=== PATIENT | male | born 1945 | race Asian ===

== ENCOUNTER 2016-10-20 07:19 | Inpatient (IN) | payer MEDICAID, OTHER ==
[~2016-10-20] VITALS: Ht 162.6 cm; Wt 56.0 kg
[2016-10-20] MEDS ORDERED: SALMH IH (07:32)
[2016-10-20] MEDS ORDERED: BECL8.7A6 IH (07:32)
[2016-10-20] MEDS ORDERED: ALBU8HFA IH (07:32)
[2016-10-20] MEDS ORDERED: 0.9% SODIUM CHLORIDE 5 ML NEB SOLUTION NEB ONE (08:29)
[2016-10-20] MEDS ORDERED: ALBUTEROL SULFATE 2.5 MG/0.5 ML NEB SOLUTION NEB ONE (08:30)
[2016-10-20] MEDS ORDERED: IPRATROPIUM BROMIDE 0.5 MG/2.5 ML NEB SOLUTION NEB ONE (08:30)
[2016-10-20 08:35] LABS: EOSINOPHILS % (AUTO) 0.3 % (1.0-6.0); HEMATOCRIT 43.6 % (41-53); HEMOGLOBIN 14.4 g/dL (13.5-17.5); LYMPHOCYTES # (AUTO) 2.2 K/uL (1.0-4.8); LYMPHOCYTES % (AUTO) 18.9 % (22.0-44.0); MEAN CORPUSCULAR HEMOGLOBIN 30.7 pg (26.0-34.0); MEAN CORPUSCULAR VOLUME 93 fL (80-100); MONOCYTES # (AUTO) 1.5 K/uL (0.1-1.0); MONOCYTES % (AUTO) 12.5 % (2.0-9.0); NEUTROPHILS # (AUTO) 7.9 K/uL (1.8-7.7); NEUTROPHILS % (AUTO) 67.3 % (40.0-70.0); PLATELET COUNT (AUTO) 173 K/uL (150-450); RED BLOOD CELL COUNT(AUTO) 4.68 MIL/uL (4.50-5.90); RED CELL DISTRIBUTION WIDTH 21.7 % (11.5-14.5); WHITE BLOOD COUNT (AUTO) 11.7 K/uL (4.5-11.0)
[2016-10-20 08:46] LABS: ANION GAP 6 mmol/L (8-16); CALCIUM, TOTAL 8.4 mg/dL (8.8-10.5); CARBON DIOXIDE 30 mmol/L (22-29); CHLORIDE 103 mmol/L (98-107); CREATININE 1.17 mg/dL (0.60-1.30); GLOMERULAR FILTR. RATE CALC > 60 mL/min (>60); POTASSIUM 3.6 mmol/L (3.5-5.1); SODIUM SERUM 139 mmol/L (136-145); UREA NITROGEN, BLOOD 12 mg/dL (7-18)
[2016-10-20 08:49] LABS: INR 1.2 (0.9-1.1); PROTHROMBIN TIME 12.9 SEC (9.4-11.6)
[2016-10-20 08:54] LABS: RBC MORPHOLOGY COMMENT ABNORMAL RBC MORPH
[2016-10-20 08:59] LABS: B-TYPE NATRIURETIC PEPTIDE 37 pg/mL (0-100)
[2016-10-20 09:02] LABS: GLUCOSE, URINE (UA) NEGATIVE (NEGATIVE); KETONES,URINE NEGATIVE (NEGATIVE); LEUKOCYTE ESTERASE ,URINE SMALL (NEGATIVE); OCCULT BLOOD,URINE NEGATIVE (NEGATIVE); PROTEIN,URINE NEGATIVE (NEGATIVE)
[2016-10-20 09:04] LABS: ADD UA MICROSCOPIC YES
[2016-10-20 09:06] LABS: APPEARANCE,URINE SLIGHTLY CLOUDY (CLEAR); RBC,URINE None Seen /HPF (0-2)
[2016-10-20 09:07] LABS: RENAL EPITHELIAL CELLS,URINE Rare /LPF (None Seen)
[2016-10-20 09:11] LABS: ALANINE AMINOTRANSFERASE 77 U/L (12-78); ALBUMIN 2.3 g/dL (3.4-5.0); ASPARTATE AMINOTRANSFERASE 69 U/L (15-37); BILIRUBIN,TOTAL 8.5 mg/dL (0.1-1.0); CREATINE KINASE MB 1.1 ng/mL (0-5); CREATINE KINASE, TOTAL 102 U/L (39-308); TOTAL PROTEIN, SERUM 6.5 g/dL (6.4-8.2)
[2016-10-20 09:22] LABS: INFLUENZA TYPE B NEGATIVE FOR TYPE B (NEGATIVE)
[2016-10-20] MEDS ORDERED: AZITHROMYCIN 500 MG/NS 250 ML IV ONE (12:15)
[2016-10-20] MEDS ORDERED: CefTRIAXone 1 GM/DEXTROSE 50 ML IV ONE (12:15)
[2016-10-20] MEDS ORDERED: MethylPREDNISolone SOD SUCC 125 MG/2 ML VIAL IVP ONE (12:15)
[2016-10-20 12:45] VITALS: BP 113/67
[2016-10-20] MEDS ORDERED: INFLUENZA VIRUS VACCINE QVS 2016-17 (3YR+)/PF 60 MCG/0.5 ML SYRINGE IM ONE (13:00)
[2016-10-20] MEDS ORDERED: ACETAMINOPHEN 325 MG TABLET PO PRN (13:15)
[2016-10-20] MEDS ORDERED: *CLINICAL-LEVOFLOXACIN IVPB DOSING CLINICAL ONE ×2 (13:15)
[2016-10-20] MEDS ORDERED: ALBUTEROL SULFATE 2.5 MG/0.5 ML NEB SOLUTION NEB PRN (13:15)
[2016-10-20] MEDS ORDERED: ZOLPIDEM TARTRATE 5 MG TABLET PO PRN (13:15)
[2016-10-20] MEDS ORDERED: MAGNESIUM HYDROXIDE SUSPENSION 30 ML UDCUP PO PRN (13:15)
[2016-10-20] MEDS ORDERED: ONDANSETRON HCL 4 MG/2 ML VIAL IVP PRN (13:15)
[2016-10-20] MEDS ORDERED: BISACODYL 10 MG RECTAL RECTAL SUPPOSITORY PR PRN (13:15)
[2016-10-20] MEDS ORDERED: HYDROCODONE/ACETAMINOPHEN 5-325 MG TABLET PO PRN (13:15)
[2016-10-20] MEDS ORDERED: MORPHINE SULFATE 2 MG/ML SYRINGE IVP PRN (13:15)
[2016-10-20] MEDS ORDERED: IPRATROPIUM BROMIDE 0.5 MG/2.5 ML NEB SOLUTION NEB PRN (13:15)
[2016-10-20] MEDS ORDERED: LEVOFLOXACIN 750 MG/D5% WATER 150 ML IV SCH (14:00)
[2016-10-20] MEDS ORDERED: SODIUM CHLORIDE 0.9% 250 ML IV ONE (14:21)
[2016-10-20] MEDS: BENZONATATE 100 MG CAPSULE PO SCH ×2 (15:34→20:08)
[2016-10-20] MEDS: HEPARIN SODIUM,PORCINE 5,000 UNITS/ML VIAL SQ SCH ×2 (15:35→23:14)
[2016-10-20] MEDS ORDERED: BENZONATATE 100 MG CAPSULE PO SCH (16:00)
[2016-10-20 16:17] VITALS: BP 119/71
[2016-10-20] MEDS: MethylPREDNISolone SOD SUCC 125 MG/2 ML VIAL IVP SCH ×2 (18:38→23:13)
[2016-10-20] MEDS: ALBUTEROL SULFATE 2.5 MG/0.5 ML NEB SOLUTION NEB SCH (19:31)
[2016-10-20] MEDS: IPRATROPIUM BROMIDE 0.5 MG/2.5 ML NEB SOLUTION NEB SCH (19:31)
[2016-10-20 19:35] VITALS: BP 122/65
[2016-10-20] MEDS: DOCUSATE SODIUM 100 MG CAPSULE PO SCH (20:08)
[2016-10-20] MEDS: GuaiFENesin SR 600 MG ER TABLET PO SCH (20:08)
[2016-10-20] MEDS ORDERED: FLUTICASONE/VILANTEROL 200-25 MCG/INH INHALER [14] IH SCH (21:00)
[2016-10-20 23:54] VITALS: BP 107/56
[2016-10-21] MEDS: IPRATROPIUM BROMIDE 0.5 MG/2.5 ML NEB SOLUTION NEB SCH ×3 (02:33→14:38)
[2016-10-21] MEDS: ALBUTEROL SULFATE 2.5 MG/0.5 ML NEB SOLUTION NEB SCH ×3 (02:33→14:38)
[2016-10-21 04:38] VITALS: BP 100/57
[2016-10-21] MEDS: MethylPREDNISolone SOD SUCC 125 MG/2 ML VIAL IVP SCH ×2 (06:04→12:11)
[2016-10-21 06:43] LABS: ANION GAP 8 mmol/L (8-16); CALCIUM, TOTAL 8.8 mg/dL (8.8-10.5); CARBON DIOXIDE 28 mmol/L (22-29); CHLORIDE 103 mmol/L (98-107); CREATININE 1.17 mg/dL (0.60-1.30); GLOMERULAR FILTR. RATE CALC > 60 mL/min (>60); POTASSIUM 3.5 mmol/L (3.5-5.1); SODIUM SERUM 139 mmol/L (136-145); UREA NITROGEN, BLOOD 13 mg/dL (7-18)
[2016-10-21 07:40] VITALS: BP 113/79
[2016-10-21] MEDS: GuaiFENesin SR 600 MG ER TABLET PO SCH (08:16)
[2016-10-21] MEDS: DOCUSATE SODIUM 100 MG CAPSULE PO SCH (08:16)
[2016-10-21] MEDS: BENZONATATE 100 MG CAPSULE PO SCH ×2 (08:16→15:44)
[2016-10-21] MEDS: HEPARIN SODIUM,PORCINE 5,000 UNITS/ML VIAL SQ SCH ×2 (08:16→15:41)
[2016-10-21] MEDS ORDERED: PANTOPRAZOLE SODIUM 40 MG DR TABLET PO SCH (09:00)
[2016-10-21 11:40] VITALS: BP 95/52
[2016-10-21] MEDS ORDERED: BENZ-26 PO (13:13)
[2016-10-21] MEDS ORDERED: PRED10 PO (13:13)
[2016-10-21] MEDS ORDERED: PRED5 PO (13:13)
[2016-10-21] MEDS ORDERED: CIPR-278 PO (13:13)
[2016-10-21 15:20] VITALS: BP 103/57
== END 2016-10-21 16:30 | disposition home or self-care (01) | DRG 140 ==
LOC: EMS 07:20 → 6N 11:27
PROVIDERS: ADMIT Internal Medicine; ATTEND Internal Medicine
PROC: 3E0234Z Introduction of Serum, Toxoid and Vaccine into Muscle, Percutaneous Approach (ICD-10-PCS; principal; 2016-10-21)
DX: J44.1 Chronic obstructive pulmonary disease with (acute) exacerbation (principal); E43 Unspecified severe protein-calorie malnutrition; J45.901 Unspecified asthma with (acute) exacerbation; N39.0 Urinary tract infection, site not specified; N40.0 Benign prostatic hyperplasia without lower urinary tract symptoms; Z68.21 Body mass index [BMI] 21.0-21.9, adult; Z79.899 Other long term (current) drug therapy; Z23 Encounter for immunization
CPT/HCPCS: 87804; 90471; 93005; 94640; 96374; 96375; 99285; J0456; J0696; J1644; J1956; J2270; J2405; J2930; J7050

== ENCOUNTER 2018-12-27 07:35 | Day surgery (SDC) | payer OTHER ==
[~2018-12-27] VITALS: Ht 160 cm; Wt 56.5 kg
[~2018-12-27 07:35] MED LIST: ALBU8HFA IH; BENZ-51 PO; BUDE180H IH; FLUC50TA PO; GUAIF600 PO; IPRNEB IH; LEVA0.6319 NEB; LEVO250 PO; PANT40TA25 PO; PRED5 PO; SALMH IH
[2018-12-27] MEDS ORDERED: IOVERSOL 350 MG/ML 150 ML VIAL ONE (08:52)
[2018-12-27] MEDS ORDERED: SODIUM CHLORIDE 0.9% 100 ML ONE (08:52)
[2018-12-27] MEDS ORDERED: TIOT185 IH (09:01)
[2018-12-27] MEDS ORDERED: MONT10TA21 PO (09:01)
[2018-12-27] MEDS ORDERED: OMEP20 PO (09:01)
[2018-12-27] MEDS ORDERED: CILO100T PO (09:01)
[2018-12-27 09:05] LABS: ANION GAP 8 mmol/L (8-16); CALCIUM, TOTAL 8.9 mg/dL (8.8-10.5); CARBON DIOXIDE 32 mmol/L (22-29); CHLORIDE 105 mmol/L (98-107); CREATININE 1.08 mg/dL (0.60-1.30); GLOMERULAR FILTR. RATE CALC > 60 mL/min (>60); GLUCOSE,RANDOM 90 mg/dL (70-110); POTASSIUM 4.1 mmol/L (3.5-5.1); SODIUM SERUM 145 mmol/L (136-145); UREA NITROGEN, BLOOD 8 mg/dL (7-18)
[2018-12-27] MEDS ORDERED: 0.9% SODIUM CHLORIDE 10 ML SYRINGE IVP PRN (09:15)
== END 2018-12-27 11:10 | disposition home or self-care (01) ==
LOC: SURGERY 07:35 → EDSTATUS 09:30 → SURGERY 11:10
PROVIDERS: ATTEND Internal Medicine Cardiovascular Disease
DX: I70.0 Atherosclerosis of aorta (principal); I74.5 Embolism and thrombosis of iliac artery; K86.2 Cyst of pancreas; K57.30 Diverticulosis of large intestine without perforation or abscess without bleeding; N26.1 Atrophy of kidney (terminal); Z87.891 Personal history of nicotine dependence; Z87.01 Personal history of pneumonia (recurrent); Z98.890 Other specified postprocedural states
CPT/HCPCS: 36415; 75635; 80048; 93005; J7050; Q9967